=== PATIENT | female | born 1995 | race Two or more races ===

== ENCOUNTER 2017-02-03 13:26 | Inpatient (IN) | payer BC ==
--- NOTE | 2017-02-03 13:22 | EDPHY ---
H & P Constitutional: Initial Vital Signs Heart Rate 67 02/03/17 13:33 Respiratory Rate 18 02/03/17 13:33 Blood Pressure 113/68 02/03/17 13:33 O2 Sat (%) 99 02/03/17 13:33 O2 Delivery Mode Room Air O2 (L/minute) 1 Allergies/Adverse Reactions: No Known Allergies Allergy (Verified 02/03/17 13:32) Home Medications: Medication Instructions Recorded Amphet Asp and D/Amphet [Adderall 10 mg PO DAILY PRN 02/03/17 10 MG (*)] Norethindrone-E.estradiol-Iron 1 each PO DAILY 02/03/17 [Microgestin Fe 1-20 Tablet] Sertraline HCl [Zoloft 50mg (*)] 50 mg PO HS 02/03/17 Medical Decision Making - Diagnostics Imaging Results: Imaging Impressions Cervical Spine CT 02/03/17 13:40 Impression: 1. No definite fracture. 2. 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 3. Gas dorsal to the left side of C2 and near the transverse alar ligament and, therefore, posterior longitudinal ligament or alar ligament injury cannot be excluded. 4. Recommend MRI of the cervical spine without contrast. Findings and recommendations discussed with Emergency Department physician, Henry Jones MD at 15:11 hour, 02/03/2017. Final report concurs with initial preliminary interpretation. Face CT 02/03/17 13:40 Impression: 1. Comminuted ventral medially displaced right mandibular condyle fracture dislocation. 2. Oblique nondisplaced midline mandibular fracture. 3. No fracture of the left mandibular condyle. Findings and recommendations discussed with Emergency Department physician, Dr. Henry Jones at 1511 hours on February 03, 2017. Final report concurs with initial preliminary interpretation. Head CT 02/03/17 13:40 Impression: 1. Right mandibular condyle comminuted medially-displaced acute fracture. 2. No intracranial hemorrhage or epidural/subdural hematomas. Findings and recommendations discussed with Emergency Department physician, Henry Jones M.D., at 1511 hours, on February 03, 2017. Final report concurs with initial preliminary interpretation. Cervical Spine MRI 02/03/17 15:09 Impression: 1. No acute abnormalities. 2. No abnormality which would correlate with a foci of gas seen on comparison CT. Case reviewed with Dr. Marquise Locke, who is in agreement with the above. Findings could be indicated by secure electronic test message to Dr. Itzel Rosado at 1927 hours on 02/03/2017. Procedures: Procedure: Laceration repair. I was requested by Dr. Jones to perform wound closure I explained the indications, risks and benefits for both laceration repair and anesthetic administration. Verbal consent was obtained from the patient . The laceration on the mandible was anesthetized using 0.5% bupivicaine with epinephrine . After anesthetic administered the patient was observed for a period of time and had no apparent adverse effects. The wound was cleaned, prepped, draped in normal sterile fashion and explored to its base. No foreign body seen, no foreign bodies palpated. The wound was repaired with tissue adhesive. The wound repair was simple. (Neelam Ordonez) ED Course/Re-evaluation: CHIEF COMPLAINT: Fall, syncope, seizure HISTORY OF PRESENT ILLNESS: This patient is a 21 year old female arriving via EMS following a fall due to a witnessed syncopal episode with possible seizure activity shortly prior to arrival. She has history of prior seizure and was evaluated in the emergency department and instructed to follow up with neurology. She was not started on anti-seizure medications at that time. Per EMS summary of witness report, she fell from standing and struck her face, and had seizure-like activity for approximately 15 seconds. She did bite her tongue. No incontinence noted. Vitals were stable in transport. She currently complains of pain to her face and to her left knee. She denies vomiting, weakness, chest pain, abdominal pain , shortness of breath, or other associated symptoms. REVIEW OF SYSTEMS: A 10 point review of systems was performed and is negative with the exception of the elements mentioned in the history of present illness. PHYSICAL EXAM: HR, BP, O2 Sat, RR. Temp noted General Appearance: Alert, appears in pain, well hydrated, appropriate, and non -toxic appearing. Head: Atraumatic without scalp tenderness or obvious injury Face: Laceration to left chin. Eyes: Pupils equal, round, reactive to light and accommodation, EOMI, no trauma , no injection. Ears: Clear bilaterally, no perforation, normal landmarks Nose: Atraumatic, no rhinorrhea, clear. Throat: Teeth appear maloccluded. There is no erythema or exudates, no lesions, normal tonsils, mucus membranes moist. Neck: Supple, 2+ carotid upstroke, nontender, no lymphadenopathy. Respiratory: No retractions, no distress, no wheezes, and no accessory muscle use. Lungs are clear to auscultation bilaterally. Cardiovascular: Regular rate and rhythm, no murmurs, rubs, or gallops. Bilateral carotid, radial, dorsalis pedis, and posterior tibial pulses intact. Good capillary refill all extremities. Gastrointestinal: Abdomen is soft, nontender, non-distended, no masses, no rebound, no guarding, no peritoneal signs. Musculoskeletal: Abrasion to left knee. Normal active ROM of all extremities. Neurological: Alert, appropriate, and interactive. The patient has normal DTRs and non-focal cranial nerves, motor, sensory, and cerebellar exam. Skin: No rashes, good turgor, no nodules on palpation. Past medical history: History of prior seizure of unknown etiology. ADHD. Past surgical history: Noncontributory Family history: Noncontributory Social history: [employer] student. No drug or alcohol use. Friend at bedside. DIFFERENTIAL DIAGNOSIS: The differential diagnosis for the patient's trauma included but was not limited to intracranial injury, long bone and pelvic bone fractures, spinal injury, intra-abdominal injury, and intra-thoracic injury. MEDICAL DECISION MAKIN21 y/o female presents following a witnessed syncopal episode with possible seizure activity shortly prior to arrival. Exam reveals laceration to left chin , tooth malocclusion, abrasion to left knee. Plan to administer 1mg IV Ativan for seizure protection, 1mg IV Dilaudid and 30mg IV Ketorolac for pain relief. Plan for CT brain, cervical spine, and maxillofacial. Plan for laceration repair. 15:[address] Vicente, radiologist. CT shows right comminuted condylar fracture. No fracture on cervical spine noted, but prevertebral gas noted. See above for full imaging reports. Plan for MRI. Plan to consult with oral surgery, neurosurgery. 15:12 Reassessed patient. Friend at bedside. Denies possibility of withdrawal seizure from benzodiazepines or alcohol. This is the patient's second seizure. Idiopathic cause at this point. 15:[address] Oshea, hospitalist. Plan to consult with trauma surgeon dye automation operator. Plan to administer 1gm Keppra for seizure prevention. 16:[address] Dove, oral surgeon. He will perform surgical repair tomorrow morning. 16:20 Emi Ordonez PA-C repaired the patient's laceration. See procedure note above for details. Consulted with Dr. Rosado, trauma surgeon. She recommends admission to the hospitalist service given the etiology of the fall being due to seizure. Patient was brought to MRI for cervical spine imaging, but began throwing up prior to scan. Administered 12.5mg IV Phenergan. MRI pending. Consulted with Dr. Funez, hospitalist. He accepts admission. (Henry Jones) - Data Points Laboratory Results: Laboratory Results 02/03/17 14:00 02/03/17 14:00 02/03/17 02/03/17 02/03/17 14:00 14:00 14:00 WBC 11.55 10^3/uL H 10^3/uL (3.80-9.50) RBC 4.46 10^6/uL 10^6/uL (4.18-5.33) Hgb 13.5 g/dL g/dL (12.6-16.3) POC Hgb Hct 39.9 % % (38.0-47.0) POC Hct MCV 89.5 fL fL (81.5-99.8) MCH 30.3 pg pg (27.9-34.1) MCHC 33.8 g/dL g/dL (32.4-36.7) RDW 12.2 % % (11.5-15.2) Plt Count 363 10^3/uL 10^3/uL (150-400) MPV 10.6 fL fL (8.7-11.7) Neut % (Auto) 52.9 % % (39.3-74.2) Lymph % (Auto) 33.6 % % (15.0-45.0) [place] % (Auto) 6.5 % % (4.5-13.0) Eos % (Auto) 6.4 % % (0.6-7.6) Baso % (Auto) 0.3 % % (0.3-1.7) Nucleat RBC Rel Count 0.0 % % (0.0-0.2) Absolute Neuts (auto) 6.11 10^3/uL 10^3/uL (1.70-6.50) Absolute Lymphs (auto) 3.88 10^3/uL H 10^3/uL (1.00-3.00) Absolute Monos (auto) 0.75 10^3/uL 10^3/uL (0.30-0.80) Absolute Eos (auto) 0.74 10^3/uL H 10^3/uL (0.03-0.40) Absolute Basos (auto) 0.04 10^3/uL 10^3/uL (0.02-0.10) Absolute Nucleated RBC 0.00 10^3/uL 10^3/uL (0-0.01) Immature Gran % 0.3 % % (0.0-1.1) Immature Gran # 0.03 10^3/uL 10^3/uL (0.00-0.10) POC Sodium Sodium 141 mEq/L mEq/L (134-144) POC Potassium Potassium 3.8 mEq/L mEq/L (3.5-5.2) POC Chloride Chloride 104 mEq/L mEq/L (97-110) Carbon Dioxide 15 mEq/l L mEq/l (22-31) Anion Gap 22 mEq/L H mEq/L (8-16) POC BUN BUN 9 mg/dL mg/dL (7-23) Creatinine 0.8 mg/dL mg/dL (0.6-1.0) POC Creatinine Estimated GFR > 60 Glucose 79 mg/dL mg/dL (70-100) POC Glucose Calcium 9.8 mg/dL mg/dL (8.5-10.4) Beta HCG, Qual NEGATIVE 02/03/17 13:55 WBC RBC Hgb POC Hgb 14.6 gm/dL gm/dL (12.6-16.3) Hct POC Hct 43 % % (38-47) MCV MCH MCHC RDW Plt Count MPV Neut % (Auto) Lymph % (Auto) [place] % (Auto) Eos % (Auto) Baso % (Auto) Nucleat RBC Rel Count Absolute Neuts (auto) Absolute Lymphs (auto) Absolute Monos (auto) Absolute Eos (auto) Absolute Basos (auto) Absolute Nucleated RBC Immature Gran % Immature Gran # POC Sodium 142 mEq/L mEq/L (134-144) Sodium POC Potassium 3.3 mEq/L mEq/L (3.3-5.0) Potassium POC Chloride 106 mEq/L mEq/L (97-110) Chloride Carbon Dioxide Anion Gap POC BUN 8 mg/dL mg/dL (7-23) BUN Creatinine POC Creatinine 0.7 mg/dL mg/dL (0.6-1.0) Estimated GFR Glucose POC Glucose 82 mg/dL mg/dL (70-100) Calcium Beta HCG, Qual Medications Given: Discontinued Medications Fentanyl (Sublimaze) 100 mcg IVP EDNOW ONE Stop: 02/03/17 15:29 Last Admin: 02/03/17 15:32 Dose: 100 mcg Hydromorphone HCl (Dilaudid) 1 mg IVP EDNOW ONE Stop: 02/03/17 13:41 Last Admin: 02/03/17 13:56 Dose: 1 mg Sodium Chloride (Ns) 1,000 mls @ 0 mls/hr IV EDNOW ONE; Wide Open PRN Reason: Protocol Stop: 02/03/17 13:41 Last Admin: 02/03/17 13:58 Dose: 1,000 mls Levetiracetam 1,000 mg/ Sodium (Chloride) 110 mls @ 440 mls/hr IV EDNOW ONE Stop: 02/03/17 16:16 Last Admin: 02/03/17 16:20 Dose: 110 mls Ketorolac Tromethamine (Toradol) 30 mg IVP EDNOW ONE Stop: 02/03/17 13:41 Last Admin: 02/03/17 14:19 Dose: 30 mg Lorazepam (Ativan Injection) 1 mg IVP EDNOW ONE Stop: 02/03/17 13:40 Last Admin: 02/03/17 13:55 Dose: 1 mg Ondansetron HCl (Zofran) 4 mg IVP EDNOW ONE Stop: 02/03/17 15:29 Last Admin: 02/03/17 15:32 Dose: 4 mg Promethazine HCl (Phenergan) 12.5 mg IVP EDNOW ONE Stop: 02/03/17 16:51 Last Admin: 02/03/17 16:51 Dose: 12.5 mg Point of Care Test Results: 02/03/17 13:55 POC Sodium 142 POC Potassium 3.3 POC Chloride 106 POC BUN 8 POC Creatinine 0.7 POC Glucose 82 Departure - Departure Disposition: [facility] Acute Clinical Impression: Seizure disorder Facial fracture Qualifiers: Encounter type: initial encounter Facial bone/location: mandible Fracture type : closed Mandible location: condylar process Laterality: right Qualified Code(s) : S02.611A - Fracture of condylar process of right mandible, initial encounter for closed fracture Condition: Fair Report Scribed for: Henry Jones Report Scribed by: Mell Pennington Date of Report: 02/03/17 Time of Report: 14:00
[2017-02-03] MEDS ORDERED: LORazepam 2 MG/ML INJ IVP ONE (13:39)
[2017-02-03] MEDS ORDERED: KETOROLAC 30 MG/1 ML SDV IVP ONE (13:40)
[2017-02-03] MEDS ORDERED: NS 1,000 ML IV ONE (13:40)
[2017-02-03] MEDS ORDERED: HYDROmorphONE/DILAUDID 1 MG/ML INJ IVP ONE (13:40)
[2017-02-03 14:09] LABS: % IMMATURE GRANULYOCYTES 0.3 % (0.0-1.1); ABSOLUTE IMMATURE GRANULOCYTES 0.03 10^3/uL (0.00-0.10); ADD DIFF? NO; ADD MORPH? NO; ADD SCAN? NO; ATYPICAL LYMPHOCYTE FLAG 20 (0-99); FRAGMENT RBC FLAG 0 (0-99); HEMATOCRIT 39.9 % (38.0-47.0); HEMOGLOBIN 13.5 g/dL (12.6-16.3); LEFT SHIFT FLG 0 (0-99); LIPEMIA HEMOLYSIS FLAG 90 (0-99); MEAN CELL HEMOGLOBIN 30.3 pg (27.9-34.1); MEAN CELL HEMOGLOBIN CONCENTR. 33.8 g/dL (32.4-36.7); MEAN CELL VOLUME 89.5 fL (81.5-99.8); MEAN PLATELET VOLUME 10.6 fL (8.7-11.7); PLATELET CLUMPS FLAG 0 (0-99); PLATELET COUNT 363 10^3/uL (150-400); RED BLOOD CELL COUNT 4.46 10^6/uL (4.18-5.33); RED CELL DISTRIBUTION WIDTH 12.2 % (11.5-15.2)
[2017-02-03 14:27] LABS: ANION GAP 22 mEq/L (8-16); CALCIUM 9.8 mg/dL (8.5-10.4); CARBON DIOXIDE 15 mEq/l (22-31); CHLORIDE 104 mEq/L (97-110); CREATININE 0.8 mg/dL (0.6-1.0); GLOMERULAR FILTRATION RATE > 60; GLUCOSE 79 mg/dL (70-100); POTASSIUM 3.8 mEq/L (3.5-5.2); SODIUM 141 mEq/L (134-144)
[2017-02-03] MEDS ORDERED: ONDANSETRON 4 MG/2 ML VIAL IVP ONE (15:28)
[2017-02-03] MEDS ORDERED: fentaNYL 100 MCG/2 ML INJ IVP ONE (15:28)
[2017-02-03] MEDS ORDERED: ONDANSETRON 4 MG/2 ML VIAL ONE (15:29)
[2017-02-03] MEDS ORDERED: fentaNYL 100 MCG/2 ML INJ ONE (15:30)
[2017-02-03] MEDS ORDERED: SKIN ADHESIVE (DERMABOND) 1 EACH TP ONE ×2 (16:00→16:06)
[2017-02-03] MEDS ORDERED: levETIRAcetam 1,000 MG in NS 100 ML IV ONE (16:02)
[2017-02-03] MEDS ORDERED: PROMETHAZINE HCL 25 MG/ML INJ ONE (16:45)
[2017-02-03] MEDS ORDERED: PROMETHAZINE HCL 25 MG/ML INJ IVP ONE (16:50)
[2017-02-03] MEDS ORDERED: PROMETHAZINE HCL 25 MG TAB PO PRN (16:53)
[2017-02-03] MEDS ORDERED: TEMAZEPAM 15 MG CAP PO PRN (16:53)
[2017-02-03] MEDS ORDERED: ACETAMINOPHEN 325 MG TAB PO PRN (16:53)
[2017-02-03] MEDS ORDERED: ONDANSETRON DISINTEGRATING 4 MG TAB PO PRN (16:53)
[2017-02-03] MEDS ORDERED: ONDANSETRON 4 MG/2 ML VIAL IVP PRN (16:53)
[2017-02-03] MEDS ORDERED: NS 1,000 ML IV SCH (17:00)
--- NOTE | 2017-02-03 17:34 | GHP ---
[f rep st] HISTORY AND PHYSICAL DATE OF ADMISSION: 02/03/2017 CHIEF COMPLAINT: Seizure. HISTORY OF PRESENT ILLNESS: This is a 21-year-old female, who presents after having had a seizure. Apparently, this was witnessed, though I did not speak with the person who witnessed this. Per repor t, however, she fell over, hit her face on the sidewalk, had a tonic-clonic seizure. She did bite he r tongue. She did not lose control of her bowels or bladder. She has not been drinking alcohol rece ntly. She does not use any other drugs. She had 1 seizure about a year ago. She was seen in the Em ergency Department. She was discharged without any antiseizure medications. Followed up with Ceferino brown, who did not recommend any either. This is her second seizure. PAST MEDICAL/SURGICAL HISTORY: 1. Attention deficit hyperactivity disorder. 2. Depression. MEDICATIONS: Please see medication reconciliation. ALLERGIES: No known drug allergies. SOCIAL HISTORY: She rarely drinks. She does not smoke nicotine. She does occasionally smoke mariju kaylyn. FAMILY HISTORY: Uncle had epilepsy. REVIEW OF SYSTEMS: A 10-point review of systems is conducted, and is negative except per HPI. PHYSICAL EXAM: VITAL SIGNS: Blood pressure is 129/94, heart rate 68, respiration rate 16, sat 95% o n room air, temperature is 36.5. GENERAL: The patient is a pleasant female, looks quite uncomfortab le in a neck brace, in mild distress. HEENT: Gauze over her chin. She has significant blood on dif ferent parts of her face. CARDIOVASCULAR: Regular rate and rhythm. No murmurs, rubs, or gallops. P ULMONARY: Lungs clear to auscultation bilaterally. ABDOMEN: Soft, nontender, nondistended. SKIN: No rash. : No Shaikh. NEUROLOGIC: Shows her to be alert and oriented x3. She has no upper extr emity or lower extremity weakness. She has sensation to light touch in upper as well as her lower ext remities. PSYCHIATRIC: Normal mood and affect. LABS: White count is 11.55, bicarb is 15, creatinine 0.8. DATA: 1. I discussed this with Dr. Jones. 2. I reviewed her head CT. This shows nothing acute intracranially, does show a right mandibular co ndyle, comminuted, medially displaced acute fracture. 3. CT maxillofacial bones shows the right mandibular condyle fracture. 4. Cervical spine CT showed no fracture. There is some gas on the left side of C2. IMPRESSION AND PLAN: A 21-year-old female, who had a seizure. 1. Seizure: She is on Adderall. This is the only potential provoking factor I can find. Head CT i s negative. We will hold her Adderall. Agree with IV Keppra overnight. Neurology consult tomorrow. 2. Right mandibular condylar fracture: Dr. Gee [facility]. [facility] She will be n.p.o. 3. Gas in her neck next to C2: Unsure if this is due to her condylar fracture or something else. S he is currently in a C-collar. MRI of her C-spine has been ordered. Dr. Jones will clear her C-co llar post MRI. 4. Hematemesis: She has been reported to throw up blood in the MRI. This is likely due to her cond ylar fracture and not a second GI bleed. We will follow. /[id number]/MODL
--- NOTE | 2017-02-03 21:29 | SOAPPROG ---
SOAP Progress Note Assessment/Plan: s:Asked to consult on this 21 yo healthy female s/p ground level fall with mandible fracture. o: c-collar in place, mandible with pain in the right condyle area and pain on opening. Malocclusion noted upon closing secondary to pain in the right condylar /tmj area. No steps in occlusion, no mobile segments noted. Mandible series was taken and a right condyle fracture was noted, displaced medially, and a non -displaced left parasymphasis fx was noted A/P: healthy 21 yo with a high right condylar fracture and a non-displaced parasymphasis fx. Plan- Take to OR for closed reduction of the fracture with Arch bars and MMF at 1 pm 02/04/2017 NPO past midnight Plan: 02/03/17 21:22 Objective: Vital Signs Temp Pulse Resp BP Pulse Ox 36.8 C 57 L 16 122/68 H 97 02/03/17 20:39 02/03/17 20:39 02/03/17 20:39 02/03/17 20:39 02/03/17 20:39 ICD10 Worksheet Patient Problems: Problems Problem Status Onset Facial fracture Acute Seizure disorder Acute
[2017-02-03] MEDS: oxyCODONE IR 5 MG TAB PO PRN (22:21)
[2017-02-03] MEDS: SERTRALINE HCL 50 MG TAB PO SCH (22:22)
[2017-02-03] MEDS: levETIRAcetam 500 MG in NS 100 ML IV SCH (22:22)
--- NOTE | 2017-02-03 23:04 | SOAPPROG ---
SOAP Progress Note Assessment/Plan: Assessment: MRI negative. I cleared c spine. No additional injuries noted. Much more alert. Will sign off. Plan: 02/03/17 23:03 Objective: Vital Signs Temp Pulse Resp BP Pulse Ox 36.8 C 57 L 16 122/68 H 97 02/03/17 20:39 02/03/17 20:39 02/03/17 20:39 02/03/17 20:39 02/03/17 20:39 ICD10 Worksheet Patient Problems: Problems Problem Status Onset Facial fracture Acute Seizure disorder Acute
[2017-02-04] MEDS: oxyCODONE IR 5 MG TAB PO PRN ×2 (04:21→08:13)
--- NOTE | 2017-02-04 04:46 | GCON ---
[f rep st] CONSULTATION DATE OF CONSULTATION: 02/03/2017 CHIEF COMPLAINT: Seizure with mandibular fracture. HISTORY OF PRESENT ILLNESS: The patient is a 21-year-old woman who experienced her second seizure and had a subsequent mandible fracture. She has some air by C2, and she has a condylar fracture. Dr. Gee has been consulted. She does not have good recollection of the events. She is very tired. She is not complaining of any other injuries. PAST MEDICAL HISTORY: History of seizure. FAMILY HISTORY: Noncontributory. SOCIAL HISTORY: She denies alcohol or drug use. She is a student at . REVIEW OF SYSTEMS: 10-point review of systems is difficult to obtain due to her falling asleep during the exam. PHYSICAL EXAMINATION: VITAL SIGNS: 36.5, 66, 113/65, 12, 98% room air. GENERAL: Pleasant, awake, and will answer questions appropriately, but falls asleep easily. HEENT: Her pupils are equal and round. She has a laceration that was repaired by her mandible. It is difficult to examine the inside of her mouth. She has no otorrhea. No rhinorrhea. She has no carrera signs. The wound on her jaw was repaired with glue. NECK: No cervical spine tenderness. She is in a collar. LUNGS: Clear to auscultation bilaterally. No increased work of breathing. CARDIAC: Regular rate. ABDOMEN: Bowel sounds present. Soft, nontender, nondistended. SKIN: She has abrasions over her knees. 5/5 strength upper and lower extremities. NEURO: Grossly intact. She is oriented. PSYCH: Tired. RESULTS REVIEWED: I personally reviewed the results of her CT scan, and she has a displaced right mandibular condyle fracture. On her CT scan, she does have gas dorsal to the left side of C2. MRI is pending. There are no intracranial findings. IMPRESSION AND PLAN: The patient is a 21-year-old with seizure, status post fall with mandibular condyle fracture. Dr. Gee will fix this tomorrow. I am waiting the MRI before I can clear her C-spine. She is not having any other symptoms at this time. Tertiary survey will be performed later tonight or tomorrow. /[id number]/MODL MTDD
[2017-02-04 04:49] LABS: % IMMATURE GRANULYOCYTES 0.3 % (0.0-1.1); ABSOLUTE IMMATURE GRANULOCYTES 0.04 10^3/uL (0.00-0.10); ADD DIFF? NO; ADD MORPH? NO; ADD SCAN? NO; ATYPICAL LYMPHOCYTE FLAG 0 (0-99); FRAGMENT RBC FLAG 10 (0-99); HEMATOCRIT 34.8 % (38.0-47.0); HEMOGLOBIN 11.7 g/dL (12.6-16.3); LEFT SHIFT FLG 0 (0-99); LIPEMIA HEMOLYSIS FLAG 80 (0-99); MEAN CELL HEMOGLOBIN 29.7 pg (27.9-34.1); MEAN CELL HEMOGLOBIN CONCENTR. 33.6 g/dL (32.4-36.7); MEAN CELL VOLUME 88.3 fL (81.5-99.8); MEAN PLATELET VOLUME 10.4 fL (8.7-11.7); PLATELET CLUMPS FLAG 10 (0-99); PLATELET COUNT 323 10^3/uL (150-400); RED BLOOD CELL COUNT 3.94 10^6/uL (4.18-5.33); RED CELL DISTRIBUTION WIDTH 12.2 % (11.5-15.2)
[2017-02-04 04:54] LABS: PHENCYCLIDINE URINE BCH < 6 ng/ml (NEGATIVE); PHENCYCLIDINE URINE BCH NEGATIVE (NEGATIVE)
[2017-02-04 04:57] LABS: INR 1.07 (0.83-1.16); PROTIME(PATIENT) 13.8 SEC (12.0-15.0)
[2017-02-04 05:00] LABS: ALANINE AMINOTRANSFERASE 27 IU/L (9-52); ALBUMIN 3.5 g/dL (3.5-5.0); ALKALINE PHOSPHATASE 41 IU/L (38-126); ANION GAP 10 mEq/L (8-16); ASPARTATE AMINOTRANSFERASE 18 IU/L (14-46); BILIRUBIN,TOTAL 0.5 mg/dL (0.1-1.4); CALCIUM 9.2 mg/dL (8.5-10.4); CARBON DIOXIDE 21 mEq/l (22-31); CHLORIDE 107 mEq/L (97-110); CREATININE 0.7 mg/dL (0.6-1.0); GLOMERULAR FILTRATION RATE > 60; GLUCOSE 72 mg/dL (70-100); POTASSIUM 3.9 mEq/L (3.5-5.2); SODIUM 138 mEq/L (134-144); TOTAL PROTEIN 6.2 g/dL (6.3-8.2)
[2017-02-04 05:04] LABS: TETRAHYDROCANNABINOL URINE 785 ng/mL (NEGATIVE)
[2017-02-04] MEDS: levETIRAcetam 500 MG in NS 100 ML IV SCH ×2 (08:07→20:00)
[2017-02-04] MEDS: Norethindrone-E.Estradiol-Iron [Microgestin Fe 1-20 Tablet] 1 EACH PO SCH (08:10)
--- NOTE | 2017-02-04 10:38 | PDMN ---
Medical Necessity Medical necessity: Pt meets INPT criteria per [place] and [facility] [id number] (est. LOS >2 MN for eval/tx of seizure, R mandibular condylar fracture with surgery pending per H&P).
[2017-02-04] MEDS: HYDROmorphONE/DILAUDID 1 MG/ML INJ IVP PRN ×3 (10:45→19:52)
[2017-02-04] MEDS ORDERED: MIDAZOLAM 2 MG/2 ML VIAL ONE (12:01)
[2017-02-04] MEDS ORDERED: MIDAZOLAM 2 MG/2 ML VIAL IVP ONE (12:08)
--- NOTE | 2017-02-04 12:08 | PDANEPAE ---
ANE History of Present Illness 21 year old female presents for closed reduction of mandible fracture. ANE Past Medical History - Cardiovascular History Hx Hypertension: No Hx Arrhythmias: No Hx Chest Pain: No Hx Coronary Artery / Peripheral Vascular Disease: No Hx CHF / Valvular Disease: No Hx Palpitations: No - Pulmonary History Hx COPD: No Hx Asthma/Reactive Airway Disease: Yes Hx Recent Upper Respiratory Infection: No Hx Oxygen in Use at Home: No Hx Sleep Apnea: No Sleep Apnea Screening Result - Last Documented: Negative - Neurologic History Hx Cerebrovascular Accident: No Hx Seizures: Yes Hx Dementia: No - Endocrine History Hx Diabetes: No Hypothyroid: No Hyperthyroid: No Obesity: no - Renal History Hx Renal Disorders: No - Liver History Hx Hepatic Disorders: No - Neurological & Psychiatric Hx Hx Neurological and Psychiatric Disorders: Yes Neurological / Psychiatric History Comment: seizure - Cancer History Hx Cancer: No - Congenital Disorder History Hx Congenital Disorders: No ANE Review of Systems Review of Systems: - Exercise capacity Exercise capacity: >=4 METS ANE Patient History - Allergies Allergies/Adverse Reactions: No Known Allergies Allergy (Verified 02/03/17 13:32) - Home Medications Home medications: home medication list seen and reviewed Home Medications: Amphet Asp and D/Amphet [Adderall 10 MG (*)] 10 mg PO DAILY PRN 02/03/17 [Last Taken 02/02/17] Norethindrone-E.estradiol-Iron [Microgestin Fe 1-20 Tablet] 1 each PO DAILY 02/10 [Last Taken Unknown] Sertraline HCl [Zoloft 50mg (*)] 50 mg PO HS 02/03/17 [Last Taken 02/02/17] - NPO status NPO Status: no food or drink >8 hours NPO Since - Liquids (Date): 02/04/17 NPO Since - Liquids (Time): 00:00 NPO Since - Solids (Date): 02/04/17 NPO Since - Solids (Time): 00:00 - Anes Hx Anes Hx: no prior problems - Smoking Hx Smoking Status: Never smoked Marijuana use: Yes - Alcohol Use Alcohol Use: Rarely - Family Anes Hx Family Anes Hx: neg - N/A ANE Labs/Vital Signs - Labs Result Diagrams: 02/04/17 04:17 02/04/17 04:17 - Vital Signs Vital Signs: reviewed preoperatively; see RN documention for details Blood Pressure: 114/81 Heart Rate: 69 Respiratory Rate: 16 O2 Sat (%): 94 Height: 177.8 cm Weight: 61.235 kg ANE Physical Exam - Airway Mallampati Score: Unable to assesss - Pulmonary Pulmonary: no respiratory distress - Cardiovascular Cardiovascular: regular rate and rhythym - ASA Status ASA Status: II ANE Anesthesia Plan Anesthesia Plan: general endotracheal anesthesia Total IV Anesthesia: No
[2017-02-04] MEDS ORDERED: PROPOFOL 200 MG/20 ML VIAL ONE (12:10)
[2017-02-04] MEDS ORDERED: fentaNYL 100 MCG/2 ML INJ ONE ×2 (12:10→14:32)
[2017-02-04] MEDS ORDERED: ROCURONIUM 50 MG/5 ML VIAL ONE (12:17)
[2017-02-04] MEDS ORDERED: LIDO/EPI 2%** Not for Epidural 20 ML MDV ONE (12:28)
[2017-02-04] MEDS ORDERED: DEXAMETHASONE 4 MG/ML VIAL ONE (12:32)
--- NOTE | 2017-02-04 12:37 | ASMTCMCOM ---
CM Note CM Note Notes: Pt here s/p seizure where she sustained facial fx. She is currently in surgery. CM will meet w/pt and address dc needs if any tomorrow. Date Signed: 02/04/2017 12:36 PM Electronically Signed By:Lavern Lawson RN
[2017-02-04] MEDS ORDERED: NALOXONE HCL 0.4 MG/ML INJ IVP PRN (12:49)
[2017-02-04] MEDS ORDERED: HYDROmorphONE/DILAUDID 1 MG/ML INJ IVP PRN (12:49)
[2017-02-04] MEDS ORDERED: ONDANSETRON 4 MG/2 ML VIAL IVP PRN (12:49)
[2017-02-04] MEDS ORDERED: ALBUTEROL 3 ML DEYVIAL IH PRN (12:49)
[2017-02-04] MEDS ORDERED: PROMETHAZINE HCL 25 MG/ML INJ IVP PRN (12:49)
[2017-02-04] MEDS ORDERED: fentaNYL 100 MCG/2 ML INJ IVP PRN (12:49)
[2017-02-04] MEDS ORDERED: ONDANSETRON 4 MG/2 ML VIAL ONE (12:52)
[2017-02-04] MEDS ORDERED: SUGAMMADEX SODIUM 200 MG/2 ML VIAL IVP ONE (12:53)
--- NOTE | 2017-02-04 12:58 | NEUROPROG ---
Assessment: [id number] CC: Dr. Funez consulted neurology for a seizure. Results placed in the EMR for his review. HPI: Pt admitted to [facility] on 02/03/17 after having a witnessed generalized tonic- clonic seizure with tongue biting. She denied alcohol or drug use. She was also found to have a mandibular condylar fracture so ENT was consulted and planned on surgery to repair it. She did have 1 prior seizure in July 2015 for which no cause was found. I initially saw her on 02/04/17. She had been placed on Keppra 500 mg bid and was seizure free since then. She is currently in a great deal of pain from her mandibular fracture. PMHx: seizure disorder, (seizures in July 2015 and January 2017) ADHD, depression Home Meds: Adderall, zoloft, oral control SHx: occasional marijuana use FHx: uncle had seizures ROS: Pt denied acute fever, total vision loss, active severe chest pain, respiratory failure, total body severe rash, total bowel/bladder incontinence, psychosis, active seizures, or active bleeding O: VS reviewed General: Alert Eyes: Fundoscopic exam not able to visualize optic disks CV: Heart RRR, no murmur, no carotid bruit Lungs: Clear to auscultation bilaterally, no rhonci or rales Neuro: - Mental: . Oriented x person/place/date . concentration appears normal . speech fluency/comprehension normal . memory appears normal . fund of knowledge appear intact - Cranial Nerves: . II: PERRL, VFFTC . III/IV/: EOMI, no nystagmus, normal smooth pursuits, no Ptosis . V: facial sensation intact to LT . VII: face symmetric to eye closure and smile but due to jaw fracture she has problems performing full testing . VIII: hearing intact to conversation . IX/X: uvula raises symmetrically . XI: SCM 5/5 B/L strength . XII: tongue protrudes midline w/nl strength - Motor: . Tone: normal tone in all 4 extrem . Strength: no pronator drift, strength 5/5 throughout (B/L delt, bic, tri, hand twill cutter, hf/he, df/pf) - Reflexes: B/L bic/BR/patella 2/4 - Sensory: all 4 extrem intact to light touch - Coord: [id number] wnl, KODAK wnl, pwdi-bn-bylc wnl - Gait: deferred Labs: 02/03/17- CBC WBC 11.55H, HCG neg 02/04/17- TSH wnl, CMP CO2 21L, tox screen + for marijuana and opiates Rads: 02/03/17- Head CT w/o con: no acute intracranial changes, R mandibular condyle fracture (I personally visualized the images on 02/04/17) Assessment: 1. Recurrent Generalized seizures: Last seizure 02/03/17, prior seizure July 2015 (2 total life time). Normal neurologic exam on 02/04/[address] on 02/03/17 (other than mandible fracture). Uncle with seizure disorder. 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 Pt needs long-term anti-seizure meds. 2. Left Mandibular Fracture: ENT planning surgery Plan: - Keppra 500 mg bid (change to PO when possible) - Seizure precautions and no driving until seizure free for 3 months - Stop Adderall (seizure risk) - F/U in neurology clinic 1-4 weeks after hospital discharge, will obtain EEG and consider brain MRI w/ and w/o con at that time Objective: Vital Signs Temp Pulse Resp BP Pulse Ox 37.0 C 69 16 114/81 H 94 02/04/17 11:46 02/04/17 12:08 02/04/17 12:08 02/04/17 12:08 02/04/17 12:08 Laboratory Results 02/04/17 04:17 02/04/17 04:17 PT 13.8 SEC (12.0-15.0) 02/04/17 04:17 INR 1.07 (0.83-1.16) 02/04/17 04:17 Allergies/Adverse Reactions: No Known Allergies Allergy (Verified 02/03/17 13:32)
--- NOTE | 2017-02-04 15:09 | HOSPPROG ---
Hospitalist Progress Note Assessment/Plan: New patient encounter 21 yo female admitted following a seizure. Found to have Mandibular condylar fracture which was repaired today. Now with acute pain. No further seizure activity #Seizure disorder -2 seizures lifelong at this point -cont Keppra 500mg BID, will need lifelong treatment -f/u with Dr. Tovar (Neuro) in 1-4 weeks. At that time, can get an EEG and MRI Brain #Mandibular Condylar Fracture: s/p repair today -pos op care per ENT -pain mgmt #ADHD -stop Adderall due to seizures #acute pain syndrome Plan: -monitor overnight -Discharge in a.m. Subjective: Seen this afternoon following surgery. C/O significant pain. no further seizure activity. Objective: Vital Signs Temp Pulse Resp BP Pulse Ox 36.2 C 69 16 123/82 H 92 02/04/17 14:09 02/04/17 12:08 02/04/17 14:00 02/04/17 14:00 02/04/17 14:00 Laboratory Results 02/04/17 04:17 02/04/17 04:17 02/03/17 02/04/17 02/05/17 05:59 05:59 05:59 Intake Total 700 Output Total 15 Balance 685 PT 13.8 SEC (12.0-15.0) 02/04/17 04:17 INR 1.07 (0.83-1.16) 02/04/17 04:17 - Physical Exam Constitutional: no apparent distress, appears nourished, not in pain Eyes: PERRL, anicteric sclera, EOMI Ears, Nose, Mouth, Throat: moist mucous membranes, hearing normal, ears appear normal, no oral mucosal ulcers Cardiovascular: regular rate and rhythym, no murmur, rub, or gallop Respiratory: no respiratory distress, no rales or rhonchi, clear to auscultation Gastrointestinal: normoactive bowel sounds, soft, non-tender abdomen, no palpable masses Neurologic: AAOx3 Psychiatric: interacting appropriately, not encephalopathic ICD10 Worksheet Patient Problems: Problems Problem Status Onset Facial fracture Acute Seizure disorder Acute
[2017-02-04] MEDS ORDERED: HYDROmorphONE/DILAUDID 1 MG/ML INJ ONE (15:27)
[2017-02-04] MEDS: IBUPROFEN SUSP 100 MG/5 ML UDCUP PO SCH (17:15)
--- NOTE | 2017-02-04 17:26 | POSTOPPROG ---
Post Op Note Date of Operation: 02/04/17 Surgeon: Isaac Gee Anesthesia: GET(General Endotracheal) Pre-op Diagnosis: mandibular condyle fracture Post-op Diagnosis: same Indication: fracture of mandible Procedure: closed reduction of mandible fx Findings: good occlusion post op- fracture easily reduced Inf/Abcess present in the surg proc area at time of surgery?: No Depth: Superfical (Skin SQ) EBL: Minimal Total fluids administered: 500 cc Complications: none Specimen(s): none
--- NOTE | 2017-02-04 17:31 | SOAPPROG ---
SOAP Progress Note Assessment/Plan: Patient taken to OR today for closed reduction of mandibular condyle fx. Fx reduced easily, placed in maxillomandibular fixation (wired jaw) Patient can be discharged per the hospitalist service, has been given a home rx for lortab 7.5/500/15 ml x 300 cc and instructed to take 15 ml every 6 h prn pain, will need follow up in my office in 7-10 days. Gave her mother the number for my office [phone]. post op instructions were given to patient and mother preop, but notibly will require a liquid diet for 4-6 weeks. Will follow while in house. 02/04/17 17:26 Objective: Vital Signs Temp Pulse Resp BP Pulse Ox 36.8 C 82 16 108/60 94 02/04/17 16:36 02/04/17 16:36 02/04/17 16:36 02/04/17 16:36 02/04/17 16:36 Laboratory Results 02/04/17 04:17 02/04/17 04:17 02/03/17 02/04/17 02/05/17 05:59 05:59 05:59 Intake Total 1600 Output Total 15 Balance 1585 PT 13.8 SEC (12.0-15.0) 02/04/17 04:17 INR 1.07 (0.83-1.16) 02/04/17 04:17 ICD10 Worksheet Patient Problems: Problems Problem Status Onset Facial fracture Acute Seizure disorder Acute
[2017-02-04 18:40] VITALS: RESP 16
--- NOTE | 2017-02-04 20:51 | POSTANESTH ---
Post Anesthetic Evaluation Cardiovascular Status: Normal, Stable, Similar to Pre-Op Cond Respiratory Status: Normal, Stable, Similar to Pre-op Cond. Level of Consciousness/Mental Status: Can Participate in Eval, Alert and Oriented Pain Control: Adequate, Prn Tx Ordered Nausea/Vomiting Control: Adequate, Prn Tx Ordered Complications Possibly Related to Anesthesia: Other, See Comments (Patient with mild nose bleed in PACU from Naso-tracheal intubation.)
[2017-02-04] MEDS ORDERED: ACETAMINOPHEN 650 MG/20.3 ML UDCUP PO PRN (21:30)
[2017-02-04] MEDS: HYDROCOD/APAP 7.5/325 IN 15ML UDCUP PO PRN (22:04)
[2017-02-04] MEDS: SERTRALINE HCL 50 MG TAB PO SCH (22:06)
[2017-02-05] MEDS: IBUPROFEN SUSP 100 MG/5 ML UDCUP PO SCH ×2 (01:31→06:25)
[2017-02-05 05:50] LABS: % IMMATURE GRANULYOCYTES 0.3 % (0.0-1.1); ABSOLUTE IMMATURE GRANULOCYTES 0.03 10^3/uL (0.00-0.10); ADD DIFF? NO; ADD MORPH? NO; ADD SCAN? NO; ATYPICAL LYMPHOCYTE FLAG 10 (0-99); FRAGMENT RBC FLAG 0 (0-99); HEMATOCRIT 32.2 % (38.0-47.0); HEMOGLOBIN 10.8 g/dL (12.6-16.3); LEFT SHIFT FLG 0 (0-99); LIPEMIA HEMOLYSIS FLAG 80 (0-99); MEAN CELL HEMOGLOBIN 29.8 pg (27.9-34.1); MEAN CELL HEMOGLOBIN CONCENTR. 33.5 g/dL (32.4-36.7); MEAN CELL VOLUME 88.7 fL (81.5-99.8); MEAN PLATELET VOLUME 10.6 fL (8.7-11.7); PLATELET CLUMPS FLAG 0 (0-99); PLATELET COUNT 260 10^3/uL (150-400); RED BLOOD CELL COUNT 3.63 10^6/uL (4.18-5.33); RED CELL DISTRIBUTION WIDTH 12.1 % (11.5-15.2)
[2017-02-05 06:06] LABS: ANION GAP 7 mEq/L (8-16); CALCIUM 9.1 mg/dL (8.5-10.4); CARBON DIOXIDE 25 mEq/l (22-31); CHLORIDE 103 mEq/L (97-110); CREATININE 0.7 mg/dL (0.6-1.0); GLOMERULAR FILTRATION RATE > 60; GLUCOSE 81 mg/dL (70-100); POTASSIUM 3.9 mEq/L (3.5-5.2); SODIUM 135 mEq/L (134-144)
[2017-02-05] MEDS: HYDROCOD/APAP 7.5/325 IN 15ML UDCUP PO PRN (06:26)
[2017-02-05 07:40] VITALS: BP 108/58; PULSE 78; TEMP 98.5; O2SAT 96
[2017-02-05] MEDS: Norethindrone-E.Estradiol-Iron [Microgestin Fe 1-20 Tablet] 1 EACH PO SCH (08:36)
[2017-02-05] MEDS: levETIRAcetam 500 MG in NS 100 ML IV SCH (08:36)
--- NOTE | 2017-02-05 09:32 | PDDCSUM ---
Discharge Summary Discharge Summary: HPI and Hospital Course: 21 yo female admitted following a seizure. Found to have Mandibular condylar fracture which was repaired. Jaw is wired shut. Given that this is her second seizure, she is on Keppra likely lifelong. Will f/u with Neuro for further mgmt. MRI was not performed as she has her jaw wired. She will f/u for ENT for further mgmt. Cont with wired liquid diet likely for 4-6 weeks. She needs to stop using Adderall and this was discontinued at discharge Discharge Diagnosis: #Seizure disorder -2 seizures lifelong at this point -cont Keppra 500mg BID, will need lifelong treatment -f/u with Dr. Tovar (Neuro) in 1-4 weeks. At that time, can get an EEG and MRI Brain #Mandibular Condylar Fracture: s/p repaired 02/04 -pos op care per ENT -pain mgmt #ADHD -stop Adderall due to seizures #acute pain syndrome, pain meds provided Discharge Exam: NAD AAOX3 JAW WIRED SHUT RRR CTA B meds: see med rec. New meds Keppra 500 mg PO BID, Lortab for pain f/u: per above total time spent on discharge is 35 mins
--- NOTE | 2017-02-05 12:33 | NEUROPROG ---
Assessment: [id number] CC: F/U for seizures Narrative Summary: Pt admitted to [facility] on 02/03/17 after having a witnessed generalized tonic- clonic seizure with tongue biting. She denied alcohol or drug use. She was also found to have a mandibular condylar fracture so ENT was consulted and planned on surgery to repair it. She did have 1 prior seizure in July 2015 for which no cause was found. I initially saw her on 02/04/17. She had been placed on Keppra 500 mg bid and was seizure free since then. She is currently in a great deal of pain from her mandibular fracture. HPI: F/U 02/05/17. Pt had jaw surgery w/o complications. No further seizures. She will discharge today. PMHx: seizure disorder, (seizures in July 2015 and January 2017) ADHD, depression SHx: occasional marijuana use FHx: uncle had seizures ROS: Pt denied acute fever, total vision loss, active severe chest pain, respiratory failure, total body severe rash, total bowel/bladder incontinence, psychosis, active seizures, or active bleeding Labs: 02/03/17- CBC WBC 11.55H, HCG neg 02/04/17- TSH wnl, CMP CO2 21L, tox screen + for marijuana and opiates Rads: 02/03/17- Head CT w/o con: no acute intracranial changes, R mandibular condyle fracture (I personally visualized the images on 02/04/17) Assessment: 1. Recurrent Generalized seizures: Last seizure 02/03/17, prior seizure July 2015 (2 total life time). Normal neurologic exam on 02/04/[address] on 02/03/17 (other than mandible fracture). Uncle with seizure disorder. 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 Pt needs long-term anti-seizure meds. 2. Left Mandibular Fracture: ENT performed surgery 02/04/17 Plan: - Keppra 500 mg bid - Seizure precautions and no driving until seizure free for 3 months - Stop Adderall (seizure risk) - F/U in neurology clinic 1-4 weeks after hospital discharge, will obtain EEG and consider brain MRI w/ and w/o con at that time Objective: Vital Signs Temp Pulse Resp BP Pulse Ox 36.9 C 78 16 108/58 L 96 02/05/17 07:38 02/05/17 07:38 02/05/17 07:38 02/05/17 07:38 02/05/17 07:38 Laboratory Results 02/05/17 05:16 02/05/17 05:16 02/04/17 02/05/17 02/06/17 05:59 05:59 05:59 Intake Total 1800 Output Total 16 Balance 1784 PT 13.8 SEC (12.0-15.0) 02/04/17 04:17 INR 1.07 (0.83-1.16) 02/04/17 04:17 Allergies/Adverse Reactions: No Known Allergies Allergy (Verified 02/03/17 13:32)
--- NOTE | 2017-02-05 12:46 | ASDISCHSUM ---
Discharge Information Plan Status:Home with No Needs Medically Cleared to Leave: Discharge Date:02/05/2017 10:30 AM CM D/C Disposition:Home, Routine, Self-Care ADT D/C Disposition:Home, Routine, Self-Care Projected Discharge Date:02/05/2017 10:30 AM Transportation at D/C: Discharge Delay Reason: Follow-Up Date:02/05/2017 10:30 AM Discharge Slot: Final Diagnosis: Placement Information Patient Contact Information Contact Name:KEY Relationship:Mother Address:[address] [place] [address] Work Phone: City:[facility] Phone: [facility] Code:ID [id number] Email: Financial Information Financial Class:HMO and PPO Plans Primary Plan Desc: OUT OF STATE [facility] Primary Plan Number:[id number] Secondary Plan Desc: Secondary Plan Number: Assessment Information [facility] CM Progress Note CM Note CM Note Notes: Pt here s/p seizure where she sustained facial fx. She is currently in surgery. CM will meet w/pt and address dc needs if any tomorrow. Date Signed: 02/04/2017 12:36 PM Electronically Signed By:Lavern Lawson RN [facility] CM Progress Note CM Note CM Note Notes: Pt medically stable for d/c w neurology follow up. No CM d/c needs identified. Date Signed: 02/05/2017 12:45 PM Electronically Signed By:DANIELA Nguyen Intervention Information
== END 2017-02-05 10:30 | disposition home or self-care (01) | DRG 101 ==
LOC: EDUNIT# → F3N 17:49 → FOB 02-04 11:38 → F3N 02-04 15:25
PROVIDERS: ADMIT Student in an Organized Health Care Education/Training Program; ATTEND Student in an Organized Health Care Education/Training Program
PROC: 0HQ1XZZ Repair Face Skin, External Approach (ICD-10-PCS; principal; 2017-02-03)
PROC: 0NST35Z Reposition Right Mandible with External Fixation Device, Percutaneous Approach (ICD-10-PCS; 2017-02-04)
DX: G40.409 Other generalized epilepsy and epileptic syndromes, not intractable, without status epilepticus (principal); S02.611A Fracture of condylar process of right mandible, initial encounter for closed fracture; F90.9 Attention-deficit hyperactivity disorder, unspecified type; W18.39XA Other fall on same level, initial encounter; S01.81XA Laceration without foreign body of other part of head, initial encounter; F32.9 Major depressive disorder, single episode, unspecified
CPT/HCPCS: 80307; 82947-QW; 92523-GN; 96374; G0480; J1100; J1170; J1885; J1953; J2060; J2250; J2405; J2550; J2704; J3010

== ENCOUNTER 2018-01-02 01:16 | Emergency (ER) | payer BC, OTHER ==
[2018-01-02 02:08] LABS: PLATELET COUNT 375 10^3/uL (150-400)
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
[2018-01-02 05:55] VITALS: BP 112/67
== END 2018-01-02 06:30 | disposition home or self-care (01) ==
DX: F10.920 Alcohol use, unspecified with intoxication, uncomplicated (principal); T42.72XA Poisoning by unspecified antiepileptic and sedative-hypnotic drugs, intentional self-harm, initial encounter; Y90.6 Blood alcohol level of 120-199 mg/100 ml
CPT/HCPCS: 80305; G0480